=== PATIENT | male | born 1970 | race African-American/Black ===

== ENCOUNTER 2018-05-13 07:31 | Emergency (ER) | payer OTHER ==
[~2018-05-13] VITALS: Ht 188 cm; Wt 95.0 kg
[2018-05-13] MEDS ORDERED: ONDANSETRON HCL 4MG/2ML INJ IV STA (07:59)
[2018-05-13] MEDS ORDERED: SODIUM CHLORIDE 0.9% 1,000 ML IV ONE ×2 (07:59→10:36)
[2018-05-13] MEDS ORDERED: FAMOTIDINE 20MG/2ML VIAL IV STA (07:59)
[2018-05-13 08:20] LABS: HEMATOCRIT. 39.9 % (42.0-52.0); HEMOGLOBIN. 12.6 g/dL (14.0-18.0); MEAN CORPUSCULAR HEMOGLOBIN 24.6 pg (28.0-32.0); MEAN CORPUSCULAR VOLUME 77.7 fL (80.0-94.0); MEAN PLATELET VOLUME 9.2 fl (7.4-10.4); PLATELET 184 x1000/uL (130-400); RED BLOOD CELL COUNT 5.13 mill/uL (4.7-6.1); RED CELL DISTRIBUTION WIDTH 13.2 % (11.6-14.6)
[2018-05-13 08:22] LABS: CLARITY URINE CLEAR (CLEAR); COLOR URINE YELLOW (YELLOW); KETONES URINE NEGATIVE (NEGATIVE); LEUKOCYTE ESTERASE URINE NEGATIVE (NEGATIVE); NITRITE URINE NEGATIVE (NEGATIVE); OCCULT BLOOD URINE NEGATIVE (NEGATIVE); PROTEIN URINE NEGATIVE (NEGATIVE); SPECIFIC GRAVITY URINE 1.009 (1.005-1.030); UROBILINOGEN URINE 0.2 E.U./dL (0.2-1.0)
[2018-05-13 08:30] LABS: CHLORIDE 105 mEq/L (98-107)
[2018-05-13] MEDS ORDERED: KETOROLAC 30MG/ML VIAL IV ONE (08:30)
[2018-05-13] MEDS ORDERED: MORPHINE SULFATE 4 MG/ML CPJ (NOT FOR IM USE) IV ONE (09:15)
[2018-05-13 09:18] LABS: NUCLEATED RED BLOOD CELLS 1 /100 WBC; PLATELET ESTIMATE NORMAL
[2018-05-13] MEDS ORDERED: TAMSULOSIN HCL 0.4MG SR CAPSULE PO ONE (10:45)
[2018-05-13 11:50] VITALS: BP 143/89
== END 2018-05-13 12:00 | disposition left against medical advice (07) ==
LOC: ER 07:31
DX: R10.32 Left lower quadrant pain (principal); R11.2 Nausea with vomiting, unspecified; R19.7 Diarrhea, unspecified; I10 Essential (primary) hypertension
CPT/HCPCS: 36415; 71045; 74176; 80053; 81003; 83690; 85025; 87804; 96361; 96374; 96375; 99284; J1885; J2270; J2405; J3490; J7030; Z7610